=== PATIENT | male | born 1965 | race Caucasian/White ===

== ENCOUNTER 2018-10-13 05:46 | Day surgery (SDC) | payer OTHER ==
[2018-10-13] MEDS ORDERED: DIPRIVAN 200 MG/20 ML IV ONE (05:47)
[2018-10-13] MEDS ORDERED: Lactated Ringers 1,000 ML IV SCH (06:30)
--- NOTE | 2018-10-13 08:21 | OP ---
SURGERY DATE/TIME: 10/13/2018 0739 PREOPERATIVE DIAGNOSIS: Screening exam. POSTOPERATIVE DIAGNOSIS: Normal colon. PROCEDURE: Colonoscopy. SURGEON: Dr. Roblero. ANESTHESIA: MAC. Medications given by anesthesia department. HISTORY: The patient is a 52 year-old white male patient presenting now for first colonoscopic evaluation. He was appraised of the risks of the procedure including the risk of perforation, phlebitis, untoward reaction to medication, bleeding and missed lesions. The patient verbalized his understanding and desired to have the procedure performed. DESCRIPTION OF PROCEDURE: The patient was given the medications by the anesthesia department. He had continuous pulse oximetry, ECG monitoring, intermittent blood pressure monitoring and tidal CO2 monitoring during the examination. He was placed in the left lateral decubitus position. A digital rectal examination was performed and revealed normal anal sphincter tone, no masses and normal prostate. The flexible Olympus pediatric colonoscope was used to intubate the rectum. A view of the colon was developed sequentially to the cecum. Upon insertion and withdrawal, including a retroflex view in the rectum, no mucosal lesions were encountered. The scope was removed from the patient who tolerated the procedure well and was sent back to OP recovery in good condition. The prep was noted to be good.
[2018-10-13 08:47] VITALS: BP 127/85; PULSE 60; O2SAT 99
== END 2018-10-13 08:50 | disposition home or self-care (01) ==
LOC: SDC 05:46
PROVIDERS: ATTEND Family Medicine
DX: Z12.11 Encounter for screening for malignant neoplasm of colon (principal)
CPT/HCPCS: J2704

== ENCOUNTER 2019-08-20 09:41 | Day surgery (SDC) | payer OTHER ==
--- NOTE | 2019-08-20 09:40 | HP ---
DATE OF SURGERY: 08/20/2019 HISTORY OF PRESENT ILLNESS: The patient is a 53 year-old male with some left groin aches and pains worse with stretching and pulling, more ache on the left. PAST MEDICAL HISTORY: EGD. Hypertension. History of atrial fibrillation. PAST SURGICAL HISTORY: Ablation in the past. MEDICATIONS: ALLERGIES: FLURA-SAVE. FLUOROX. PEANUT OIL CAUSES HIVES. FAMILY HISTORY: Negative in regards to this problem. SOCIAL HISTORY: No alcohol abuse. REVIEW OF SYSTEMS: Fourteen systems reviewed per admission assessment. Sciatica in the past. Cardiomyopathy in the past. No chest pain or palpitations currently. Other systems negative or noncontributory as above and per preadmission questionnaire. He had CT scan showed small fatty, no hernias. Cord lipoma. PHYSICAL EXAMINATION: GENERAL: Chronically ill gentleman. No acute distress. HEENT: Sclerae nonicteric. NECK: No JVD. CHEST: Equal excursion, nonlabored breathing. CVS: Regular rate and rhythm. ABDOMEN: Soft. He has small right inguinal hernia on exam. Left inguinal area difficult to examine. He is having aches and pains on his left side otherwise. EXTREMITIES: No significant edema. NEURO: Alert, oriented, moving extremities symmetrically. No gross motor deficits noted. IMPRESSION: Small right inguinal hernia, possible small left inguinal hernia. CT scan showed some fat in the inguinal area. He had some left inguinal pain. He had a small right inguinal hernia on exam. I feel he would benefit from open repair inguinal hernia with mesh, exploration of left inguinal area and possibly repair with mesh as an outpatient. Risks and benefits explained in detail but not limited to bleeding or infection, risk of hematoma or seroma formation, risk of swelling or firmness in the incision, risk of wound infection, suture reaction, risk of mesh infection possibly requiring removal, risk of urinary retention, risk of recurrent hernia, risk of black, blue and bruising. General risk of anesthesia, deep venous thrombosis, pulmonary embolism, pneumonia, risk of cardiopulmonary event given his comorbidities. He also understands risk of aches, pain, burning, numbness lower abdomen, groin, thigh or scrotal area possibly [facility] or chronic in nature, risk of sensory nerve irritation, scar formation or injury but not limited to. He also understands there is a possibility of recurrent hernia on the left as well as some cord lipoma this procedure may or may not improve his current aches and pains. He could have muscle strain or tear. Hernia repair designed if accomplished to keep the hernia from getting bigger but does not necessarily improve his current aches and pains. He understands all the above and agrees to the planned procedure, will proceed with open repair right inguinal hernia repair with mesh, exploration left inguinal area and also repair recurrent with mesh pending operative findings.
[~2019-08-20 09:41] MED LIST: CEFAZOLIN 2 GM-D5W BAG** 2 GM/50 ML ML IV ONE; DIPRIVAN 200 MG/20 ML IV ONE; Lactated Ringers 1,000 ML IV ONE; Lactated Ringers 1,000 ML IV SCH; Quelicin Fliptop 200 MG/10 ML ONE; SUBLIMAZE 100 MCG/2 ML ONE; Sensorcaine 0.25% 10 ML ONE; Zemuron 100 MG/10 ML ONE
[2019-08-20] MEDS ORDERED: Zofran 4 MG/2 ML VIAL ONE ×2 (12:09→16:34)
[2019-08-20] MEDS ORDERED: Decadron 4 MG INJ ONE (12:09)
[2019-08-20] MEDS ORDERED: TORAdol 30 mg Injection ONE (12:09)
[2019-08-20] MEDS ORDERED: Ephedrine Sulfate 50 MG/ML ONE (12:17)
[2019-08-20] MEDS ORDERED: Zemuron 100 MG/10 ML ONE ×2 (12:28→13:23)
[2019-08-20] MEDS ORDERED: Lactated Ringers 2,000 ML IV ONE (13:48)
[2019-08-20] MEDS ORDERED: BRIDION 200MG/2ML IV ONE (14:29)
[2019-08-20] MEDS ORDERED: SUBLIMAZE 100 MCG/2 ML ONE (14:48)
[2019-08-20] MEDS ORDERED: DILAUDID 2 MG INJECTION ONE (15:04)
[2019-08-20 15:55] LABS: Appearance CLEAR (CLEAR); Bilirubin NEGATIVE (NEGATIVE); Blood NEGATIVE Ery/ul (0-5); Glucose NEGATIVE (NEGATIVE); Ketones NEGATIVE (NEGATIVE); Leukocyte Esterase NEGATIVE (NEGATIVE); Mucus SLIGHT /HPF (NEGATIVE); Nitrite NEGATIVE (NEGATIVE); Protein,Urine Dip NEGATIVE (Negative); Specific Gravity 1.016 (1.005-1.025); Urobilinogen NEGATIVE mg/dL (0-1); WBC 0-2 /HPF (0-5)
[2019-08-20] MEDS ORDERED: NORCO 5/325 MG PO PRN (16:14)
[2019-08-20] MEDS ORDERED: Zofran 4 MG/2 ML VIAL IV STA (16:33)
[2019-08-20 16:39] VITALS: O2SAT 94
[2019-08-20 17:02] VITALS: BP 129/89; PULSE 68
--- NOTE | 2019-08-21 09:06 | OP ---
SURGERY DATE/TIME: 08/20/2019 1201 PREOPERATIVE DIAGNOSES: 1) Left inguinal aches, question small recurrent hernia versus cord lipoma. 2) Right inguinal hernia. POSTOPERATIVE DIAGNOSES: 1) Right inguinal hernia. 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 PROCEDURES: 1) Left inguinal exploration with repair of very small recurrent left inguinal hernia. 2) Excision of small cord lipoma. 3) Open repair right inguinal hernia with mesh. SURGEON: Dr. Felix Sargent. ANESTHESIA: General. ESTIMATED BLOOD LOSS: Minimal. INDICATIONS: As noted above. Risks and benefits explained in detail and not limited to and consent obtained. DESCRIPTION OF PROCEDURE AND FINDINGS: The patient is taken to the operating room. General anesthesia induced. Abdomen prepped and draped in usual sterile fashion. After official time out and no disagreement with planned procedure, starting first as he is very morbidly obese, had a large amount of pannus in his pubic area and lower abdomen. His upper abdomen crease was actually below his pubic tubercle area. Therefore a transverse incision was made up above his pannus crease. Dissection carried down through the external oblique clamping, ligating and dividing inferior epigastric vein laterally. Dissection carried down through Kari fascia down to the external oblique split in the direction of its fibers towards the external ring. The cord is then immobilized off the pubic tubercle with Popeye drain. Cremasteric fibers . There are no gross indirect hernia. There was a large direct hernia. This is carefully imbricated down with running 0 PDS. Mesh repair, mesh was then secured cut with keyhole cut, in appropriate dimension is cut with the mesh. The fascia overlying the pubic tubercle right along Kingston's ligament along the shelving portion of the inguinal ligament with 0 Prolene. 0 Prolene used to transfix the aponeurosis of the rectus fascia medially. 0 Vicryl used to transfix the aponeurosis in internal oblique superiorly avoiding the visible branches of ilioinguinal and iliohypogastric nerve. Tails of the mesh tacked together laterally with 0 Prolene. He had a small cord 0 Vicryl used to slightly narrow the keyhole anteriorly. The new internal ring was felt to be not too tight. The mesh is lying flat as possible. Tails laterally under the external oblique laterally. He has very weak tissue given his morbid obesity required difficult dissection given the deep hole we were working in. Good hemostasis noted. Irrigation irrigating until clear. Aponeurosis external oblique closed with 0 Vicryl. Kari closed with 3-0 Vicryl. Subcu closed with 3-0 Vicryl. Skin closed with 4-0 Vicryl. Steri-Strips and sterile dressing applied. The patient tolerated the procedure well. 0.25% Marcaine local had been injected along the skin incision back towards the origin of the inguinal area back towards the anterior iliac spine. At this point the gloves were changed and went to the other side. The patient's previous incision as he has picked up some weight since his last repair was extending down into the pannus crease. It was felt it would be safer to go from the fat part of the lower pubic area fat pad. A transverse incision made. Dissection carried down through the Kari fascia down to the cord area. The cord was carefully visualized. The cord vessels and vas easily palpated. The mesh appeared to be quite securely in place. He appeared to have a small recurrence with some fat in the cord lipoma out laterally through the internal ring of the mesh itself. This is carefully away from the cord vessels and vas. It is ligated, clamped with some Vicryl ties and suture ligature and passed off. This indirect defect was to reduce the risk of this recurring was narrowed slightly to more normal size of internal ring with 0 PDS avoiding the visible branches of the ilioinguinal nerve. Good hemostasis noted. External oblique was closed over the top of this. Copious amount of irrigation irrigating clear. Kari closed with 3-0 Vicryl. Subcu closed with 3-0 Vicryl. Skin closed with 4-0 Vicryl. Steri-Strips and sterile dressing applied. The patient tolerated the procedure well. There were no immediate complications. 0.25% Marcaine local injected along the skin incision back towards the origin of the inguinal nerve back towards the anterior iliac spine. The patient tolerated the procedure well. There were no immediate complications. Findings discussed with the family or friend out in the waiting area.
== END 2019-08-20 17:30 | disposition home or self-care (01) ==
LOC: SDC 09:41
PROVIDERS: ATTEND Surgery
DX: K40.21 Bilateral inguinal hernia, without obstruction or gangrene, recurrent (principal); I10 Essential (primary) hypertension; Z79.01 Long term (current) use of anticoagulants; Z79.899 Other long term (current) drug therapy
CPT/HCPCS: 49505; 49520; 64488; 76937; 76942; 81001; 87086; C1781; J0330; J0690; J1100; J1170; J1885; J2405; J2704; J3010; A9270-GY